=== PATIENT | male | born 1985 | race Caucasian/White ===

== ENCOUNTER 2024-12-19 06:56 | Day surgery (SDC) | payer OTHER ==
[~2024-12-19] VITALS: Ht 180.3 cm; Wt 107.4 kg
[~2024-12-19 06:56] MED LIST: OMEP40CA4 PO
[2024-12-19] MEDS ORDERED: LIDOCAINE 2% 100MG/5ML SDV (FOR ANES.) As Ordered ONE (07:23)
[2024-12-19] MEDS ORDERED: fentaNYL 100 MCG/2 ML INJECTION As Ordered ONE (07:23)
[2024-12-19] MEDS ORDERED: propofoL 200 MG/20 ML VIAL As Ordered ONE (07:23)
[2024-12-19 07:45] VITALS: TEMP 97.5
[2024-12-19 08:04] VITALS: BP 135/73; O2SAT 99
[2024-12-19] MEDS ORDERED: GENTAMICIN SULF 80MG/2ML VIAL As Ordered ONE (23:41)
[2024-12-19] MEDS ORDERED: ROPIvacaine 0.5% 30ML VIAL As Ordered ONE (23:42)
[2024-12-19] MEDS ORDERED: LIDOCAINE PRES-FREE 2% 10ML AMP As Ordered ONE (23:42)
== END 2024-12-19 08:08 | disposition home or self-care (01) ==
LOC: M OPP 06:56
PROVIDERS: ATTEND Internal Medicine Gastroenterology
DX: K31.A0 Gastric intestinal metaplasia, unspecified (principal); K22.89 Other specified disease of esophagus; R12 Heartburn; Z79.899 Other long term (current) drug therapy; Z90.89 Acquired absence of other organs
CPT/HCPCS: 43239; 88305; J1100; J1580; J2795; J3010